=== PATIENT | female | born 1975 | race Caucasian/White ===

== ENCOUNTER 2018-10-12 22:45 | Emergency (ER) | payer SELFPAY ==
[~2018-10-12] VITALS: Ht 157.4 cm; Wt 56.7 kg
--- NOTE | ~2018-10-12 | EKG ---
[place], [place] ELECTROCARDIOGRAM REPORT NAME: JESSIKA CLAY UNIT #: [id number] ROOM: DOCTOR: EPIPHANY DRAFT REPORT BIRTHDATE: [birth year] [facility] Test Date: 2018-10-12 Test Time: 23:39:43 Pat Name: JESSIKA CLAY Department: Room: Gender: F [employer]: : 1975 Requested By: KARELY JACOB Order Number: [id number] Reading MD: Darwin Liu MD Measurements Intervals Epsom Rate: 79 P: 27 W[place]: 143 QRS: 60 QRSD: 91 T: 43 QT: 388 QTc: 445 Interpretive Statements Sinus rhythm No previous ECG available for comparison Electronically Signed On 10-13-2018 5:56:43 PDT by Darwin Liu MD CM:EKGRPT:ELECTROCARDIOGRAM REPORT [id number] KARELY PETERSON DRAFT REPORT KARELY JACOB DO
[2018-10-12 23:23] LABS: BASO # 0.1 10*3/uL (0.0-0.1); BASO % 0.6 % (0.0-1.0); EOS # 0.1 10*3/uL (0.0-0.4); EOS % 1.2 % (1.0-4.0); HEMATOCRIT 43.2 % (37.0-47.0); HEMOGLOBIN 14.4 g/dl (12.0-16.0); LYMPH # 4.7 10*3/uL (1.3-4.4); LYMPH % 41.7 % (27.0-41.0); MEAN CELL VOLUME 91.1 fl (81.0-99.0); MEAN CORPUSCULAR HGB 30.4 pg (27.0-31.0); MEAN CORPUSCULAR HGB CONC 33.3 g/dl (33.0-37.0); MEAN PLATELET VOLUME 9.4 fl (9.6-12.3); MONO # 0.4 10*3/uL (0.1-1.0); MONO % 3.8 % (3.0-9.0); NEUT # 5.9 10*3/uL (2.3-7.9); NEUT % 52.4 % (47.0-73.0); PLATELET COUNT AUTOMATED 315 10*3/uL (130-400); RED BLOOD COUNT 4.74 10*6/uL (4.10-5.10); RED CELL DISTRI WIDTH 14.1 % (0-14.5); WHITE BLOOD COUNT 11.2 10*3/uL (4.8-10.8)
[2018-10-12 23:37] LABS: ACETAMINOPHEN (TYLENOL) < 5.0 ug/ml (10-30); ALBUMIN 3.7 gm/dl (3.1-4.5); ALKALINE PHOSPHATASE 66 U/L (45-117); BUN 6 mg/dl (7-24); CHLORIDE 112 mmol/L (98-107); CREATININE 0.44 mg/dL (0.55-1.02); POTASSIUM 3.4 mmol/L (3.5-5.1); SGOT/AST 8 IU/L (3-35); SGPT/ALT 15 U/L (12-78); SODIUM 143 mmol/L (136-145); TOTAL PROTEIN 6.9 gm/dL (6.4-8.2)
[2018-10-12 23:50] LABS: BETA-HCG, QUANT < 1.0 mIU/mL (1-3)
[2018-10-13 04:58] LABS: BILIRUBIN NEGATIVE (NEGATIVE); BLOOD 3+ (NEGATIVE); CLARITY SL CLOUDY (CLEAR); COLOR STRAW (YELLOW); GLUCOSE NEGATIVE (NEGATIVE); KETONE NEGATIVE (NEGATIVE); LEUKO ESTERASE 2+ (NEGATIVE); NITRITE POSITIVE (NEGATIVE); UROBILINOGEN 0.2 E.U./dl (0.2-1.0)
[2018-10-13 05:08] LABS: URINE AMPHETAMINES < 1000 (1000ng/ml); URINE BARBITURATES < 200 (200ng/ml); URINE BENZODIAZEPINES < 200 (200ng/ml); URINE CANNABINOIDS (THC) > 50 (50ng/ml); URINE COCAINE < 300 (300ng/ml); URINE METHADONE < 300 (300ng/ml); URINE OPIATES < 300 (300ng/ml)
[2018-10-13 05:09] LABS: URINE PHENCYCLIDINE < 25 (25ng/ml)
[2018-10-13 05:13] LABS: BACTERIA 2+; RBC 31-40 rbc/hpf (0-2); WBC 31-40 wbc/hpf (0-5)
[2018-10-13] MEDS ORDERED: SEPTDS PO (10:08)
== END 2018-10-13 10:35 | disposition home or self-care (01) ==
LOC: ED 22:45
PROVIDERS: Student in an Organized Health Care Education/Training Program
DX: F41.0 Panic disorder [episodic paroxysmal anxiety] (principal); N39.0 Urinary tract infection, site not specified; A59.01 Trichomonal vulvovaginitis; F10.929 Alcohol use, unspecified with intoxication, unspecified; F90.9 Attention-deficit hyperactivity disorder, unspecified type; F17.200 Nicotine dependence, unspecified, uncomplicated